=== PATIENT | female | born 1995 | race African-American/Black ===

== ENCOUNTER 2017-03-16 10:44 | Emergency (ER) | payer OTHER ==
[~2017-03-16] VITALS: Ht 165.1 cm; Wt 60.0 kg
[2017-03-16 10:45] VITALS: BP 132/67; PULSE 94; RESP 17; TEMP 98.8; O2SAT 100
[2017-03-16] MEDS ORDERED: PRENTAB PO (10:58)
--- NOTE | 2017-03-16 11:13 | PD ---
HPI Chief Complaint: Related Problem Time Seen by Provider: 11:09 Travel History International Travel<30 days: No Contact w/Intl Traveler<30days: No Traveled to known affect area: No History of Present Illness HPI Patient's a 21-year-old female presenting to the emergency evaluation of vaginal bleeding. Patient reports being a weeks , she states the bleeding started Sunday and initially it was heavier and she believes she passed clots. It's gotten telemetry registered nurse over the course of the last 3 days but she has continued to have some mild abdominal cramping. She reports nausea but this has been consistent since she became . She has not vomited, no fever, no chills, shortness of breath, no chest pain. Patient denies any significant past medical history. She has not been evaluated by an printer operator. She did start vitamins on her own last week. PFSH Past Medical History Medical History: Denies Significant Hx ?: LMP: DECEMBER 24, 2016 : 1 Para: 0 Past Surgical History Surgical History: No Previous Surgery Social History Alcohol Use: No Tobacco Use: No Substance Use: No Allergies-Medications (Allergen,Severity, Reaction): Coded Allergies: No Known Allergies (Unverified , 03/16/17) Reported Meds & Prescriptions Reported Meds & Active Scripts Active Reported Prenatabs Rx 29-1 mg ( Vit W/ Iron Carbonyl-) 1 Tab Tab 1 Tab PO DAILY Review of Systems Except as stated in HPI: all other systems reviewed are Neg Gastrointestinal: Positive: Nausea, Abdominal Pain (CRAMPING) Genitourinary: Positive: Vaginal Bleeding, No: Dysuria Physical Exam Narrative GENERAL: Well-developed, well-nourished, alert female. Resting comfortably in no acute distress. SKIN: Warm and dry. HEAD: Atraumatic. Normocephalic. EYES: Pupils equal and round. No scleral icterus. No injection or drainage. ENT: No nasal bleeding or discharge. Mucous membranes pink and moist. NECK: Trachea midline. No JVD. CARDIOVASCULAR: Regular rate and rhythm. RESPIRATORY: No accessory muscle use. Clear to auscultation. Breath sounds equal bilaterally. GASTROINTESTINAL: Abdomen soft, non-tender, nondistended. Hepatic and splenic margins not palpable. MUSCULOSKELETAL: Extremities without clubbing, cyanosis, or edema. No obvious deformities. GENITOURINARY: Normal external genitalia without lesions or erythema. Vaginal vault with yellow/green watery discharge. Cervical os open with blood streaked mucus. No cervical motion tenderness. Uterus nontender and nonenlarged. Bilateral adnexa nontender without masses. NEUROLOGICAL: Awake and alert. No obvious cranial nerve deficits. Motor grossly within normal limits. Five out of 5 muscle strength in the arms and legs. Normal speech. PSYCHIATRIC: Appropriate mood and affect; insight and judgment normal. Data Data Last Documented VS Vital Signs Date Time Temp Pulse Resp B/P Pulse Ox O2 Delivery O2 Flow Rate FiO2 03/16/17 12:30 97.8 72 17 128/71 100 Room Air Orders Beta Hcg (Quant/Titer) (03/16/17 11:06) Complete Blood Count With Diff (03/16/17 11:06) Comprehensive Metabolic Panel (03/16/17 11:06) Gc And Chlamydia Pcr (03/16/17 11:06) Complete Rh (03/16/17 11:06) Us Pelvis (Ques Pr/Ect)W Trans (03/16/17 ) Wet Prep Profile (03/16/17 11:06) Urinalysis - C+S If Indicated (03/16/17 11:06) Ed Urine Pregnancytest Poc (03/16/17 11:06) Labs Laboratory Tests Test 03/16/17 03/16/17 03/16/17 11:10 11:11 11:14 White Blood Count 7.3 TH/MM3 Red Blood Count 4.23 MIL/MM3 Hemoglobin 13.6 GM/DL Hematocrit 39.1 % Mean Corpuscular Volume 92.5 FL Mean Corpuscular Hemoglobin 32.1 PG Mean Corpuscular Hemoglobin 34.8 % Concent Red Cell Distribution Width 12.0 % Platelet Count 199 TH/MM3 Mean Platelet Volume 9.8 FL Neutrophils (%) (Auto) 70.3 % Lymphocytes (%) (Auto) 21.9 % Monocytes (%) (Auto) 6.7 % Eosinophils (%) (Auto) 0.7 % Basophils (%) (Auto) 0.4 % Neutrophils # (Auto) 5.1 TH/MM3 Lymphocytes # (Auto) 1.6 TH/MM3 Monocytes # (Auto) 0.5 TH/MM3 Eosinophils # (Auto) 0.1 TH/MM3 Basophils # (Auto) 0.0 TH/MM3 CBC Comment DIFF FINAL Differential Comment Sodium Level 135 MEQ/L Potassium Level 3.3 MEQ/L Chloride Level 101 MEQ/L Carbon Dioxide Level 22.3 MEQ/L Anion Gap 12 MEQ/L Blood Urea Nitrogen 9 MG/DL Creatinine 0.57 MG/DL Estimat Glomerular Filtration 165 ML/MIN Rate Random Glucose 73 MG/DL Calcium Level 9.3 MG/DL Total Bilirubin 1.0 MG/DL Aspartate Amino Transf 9 U/L (AST/SGOT) Alanine Aminotransferase 13 U/L (ALT/SGPT) Alkaline Phosphatase 70 U/L Total Protein 7.2 GM/DL Albumin 3.7 GM/DL Human Chorionic Gonadotropin, 40895 MIU/ML Quant Blood Type B POSITIVE Rho(D) Type POSITIVE Urine Color YELLOW Urine Turbidity CLEAR Urine pH 6.0 Urine Specific Raymond 1.034 Urine Protein 30 mg/dL Urine Glucose (UA) NEG mg/dL Urine Ketones 150 mg/dL Urine Occult Blood SMALL Urine Nitrite NEG Urine Bilirubin NEG Urine Urobilinogen 2.0 MG/DL Urine Leukocyte Esterase NEG Urine RBC 2 /hpf Urine WBC 1 /hpf Urine Squamous Epithelial 1 /hpf Cells Urine Bacteria OCC /hpf Urine Mucus MANY /lpf Microscopic Urinalysis Comment CULT NOT INDICATED Clue Cells (Wet Prep) NONE SEEN Vaginal Trichomonas (Wet Prep) NONE SEEN Vaginal Yeast (Wet Prep) NONE SEEN Chlamydia trachomatis DNA NOT DETECTED (PCR) Neisseria gonorrhoeae DNA NOT DETECTED (PCR) MDM Medical Decision Making Medical Screen Exam Complete: Yes Emergency Medical Condition: Yes Interpretation(s) Vital Signs Date Time Temp Pulse Resp B/P Pulse Ox O2 Delivery O2 Flow Rate FiO2 03/16/17 10:45 98.8 94 17 132/67 100 Room Air Differential Diagnosis Vaginal bleeding versus threatened versus miscarriage versus ectopic versus other Narrative Course Patient is a 21-year-old female that presented to emergency for evaluation of vaginal bleeding that has been ongoing since Sunday. Patient reports being 8 weeks states this was confirmed by an ultrasound performed in a women' s clinic last week. She has not had any obstetric care to this point. She does report passing what appeared to be clots on Sunday, the flow has gotten telemetry registered nurse since then. Labs and imaging ordered and pending. CBC is unremarkable hCG is 98,426 Potassium 3.3 Urinalysis unremarkable Wet prep is negative blood type is B+ Ultrasound of shows a single intrauterine measuring 9 weeks. heart tones at 180 Patient was encouraged to follow-up with an printer operator within the next week or at the [facility]. She was encouraged to avoid heavy lifting or strenuous exercise until evaluated by her printer operator. She verbalized understanding of instructions. Patient is stable for discharge. Diagnosis Primary Impression: Qualified Code: Z3A.09 - 9 weeks gestation of Referrals: Operator Weapon Locating [facility] 1 week Patient Instructions: First Trimester (ED), General Instructions, Threatened Miscarriage (ED) Additional Instructions: Follow-up with an printer operator within the next week You can follow-up at [facility] Continue vitamins Return to emergency department for any new or worsening symptoms avoid heavy lifting or strenuous exercise until evaluated by printer operator. Med/Other Pt SpecificInfo: No Change to Meds Disposition: 01 DISCHARGE HOME Condition: Stable Yaritza Lin Mar 16, 2017 11:13
[2017-03-16 11:35] LABS: BACTERIA, URINE OCC /hpf; BLOOD, URINE SMALL (NEG); COMMENT (UR) CULT NOT INDICATED; CULTURE IF INDICATED CULT NOT INDICATED; GLUCOSE,URINE NEG (NEG); KETONE, URINE 150 mg/dL (NEG); MUCUS URINE MANY /lpf (OCC); NITRITE,URINE NEG (NEG); SQUAMOUS EPITHELIAL CELL URINE 1 /hpf (0-5); URINE COLOR YELLOW (YELLW/STRAW)
[2017-03-16 11:37] LABS: AUTOMATED NEUTROPHIL # 5.1 TH/MM3 (1.8-7.7); BASOPHIL % 0.4 % (0.0-2.0); EOSINOPHIL # 0.1 TH/MM3 (0-0.4); EOSINOPHIL % 0.7 % (0.0-4.0); HEMATOCRIT 39.1 % (35.0-46.0); HEMO FLAGS DIFF FINAL; LYMPH % 21.9 % (9.0-44.0); LYMPHOCYTE # 1.6 TH/MM3 (1.0-4.8); MEAN CELL VOLUME 92.5 FL (80.0-100.0); MEAN CORPUSCULAR HEMOGLOBIN 32.1 PG (27.0-34.0); MEAN CORPUSCULAR HGB CONC 34.8 % (32.0-36.0); MONO % 6.7 % (0.0-8.0); NEUT % 70.3 % (16.0-70.0); PLATELET COUNT 199 TH/MM3 (150-450); RED BLOOD COUNT 4.23 MIL/MM3 (4.00-5.30); WHITE BLOOD COUNT 7.3 TH/MM3 (4.0-11.0)
[2017-03-16 11:50] LABS: ANION GAP 12 MEQ/L (5-15); AST (GOT) 9 U/L (16-38); BICARBONATE 22.3 MEQ/L (21.0-32.0); BLOOD UREA NITROGEN 9 MG/DL (7-18); CHLORIDE 101 MEQ/L (98-107); GLOMERULAR FILTRATION RATE 165 ML/MIN (>89); POTASSIUM 3.3 MEQ/L (3.5-5.1); SODIUM (NA) 135 MEQ/L (136-145)
[2017-03-16 11:51] LABS: ALT (GPT) 13 U/L (9-42)
[2017-03-16 12:08] LABS: ALKALINE PHOSPHATASE 70 U/L (45-117); BETA HCG QUANT 98426 MIU/ML (0-5)
[2017-03-16 12:30] VITALS: BP 128/71; PULSE 72; RESP 17; TEMP 97.8; O2SAT 100
[2017-03-16 13:35] LABS: CHLAMYDIA PCR NOT DETECTED (NOT DETECT); NEISSERIA PCR NOT DETECTED (NOT DETECT)
--- NOTE | 2017-03-16 13:44 | RADRPT ---
EXAM DATE/TIME: 03/16/2017 12:21 [place] COMPARISON: No previous studies available for comparison. INDICATIONS : Bleeding and cramping since yesterday. LAB(S): Beta-hC MEDICAL HISTORY : . SURGICAL HISTORY : None. ENCOUNTER: Initial ACUITY: 2 days PAIN SCORE: 0/10 LOCATION: Bilateral pelvis MEASUREMENTS: TRANSVAGINAL: UTERUS: 9.2 x 6.7 x 4.9 cm ENDOMETRIAL STRIPE: 9 mm RIGHT OVARY: 4.4 x 2.5 x 2.9 cm LEFT OVARY: 3.5 x 2.5 x 1.9 cm FREE FLUID: Yes CROWN RUMP LENGTH: 2.3 cm = 9 WKS 0 DAYS FHR: 180 BPM FINDINGS: UTERUS: There is a gestational sac containing crown rump length measuring 2.3 cm corresponding to gestat ional age of 9 weeks and 0 days. heart activity is present with heart rate of 180 bp m. No gross myometrial mass. Small amount of fluid is noted in the cervix. RIGHT OVARY: Ovary contains no mass or significant cystic lesion. LEFT OVARY: Ovary contains no mass or significant cystic lesion. MISCELLANEOUS: Small of free fluid. CONCLUSION: 1. Single intrauterine gestation corresponding to 9 weeks and 0 days with heart activity presen t. heart rate of 180 bpm. 2. Small amount of lower cervical and vaginal fluid. The 3. Small amount of pelvic free fluid. 1. Cliff Lyn MD on March 16, 2017 at 13:34 Board Certified Radiologist. This report was verified electronically.
[2017-03-16 14:00] VITALS: BP 110/77; TEMP 97.8
== END 2017-03-16 14:00 | disposition home or self-care (01) ==
LOC: NEPD 10:44
DX: O20.9 Hemorrhage in early pregnancy, unspecified (principal); R10.9 Unspecified abdominal pain; R11.0 Nausea; Z3A.09 9 weeks gestation of pregnancy
CPT/HCPCS: 76700; 76817; 80053; 81001; 84702; 84703; 85025; 86901; 87210; 87491; 87591; 99284

== ENCOUNTER 2017-05-30 11:46 | Emergency (ER) | payer MEDICAID, OTHER ==
[~2017-05-30] VITALS: Ht 165.1 cm; Wt 60.0 kg
[~2017-05-30 11:46] MED LIST: PRENTAB PO
[2017-05-30 11:48] VITALS: BP 134/78; PULSE 112; RESP 20; TEMP 99.1; O2SAT 100
[2017-05-30] MEDS ORDERED: SODIUM CHLORIDE 0.9% FLUSH 10 ML FLUSH IVF PRN (12:15)
[2017-05-30] MEDS ORDERED: SODIUM CHLOR 0.9% 1000 ML INJ 1,000 ML IV ONE (12:15)
--- NOTE | 2017-05-30 12:27 | PD ---
HPI . Dizzy spells Chief Complaint: Dizziness Time Seen by Provider: 12:12 Travel History International Travel<30 days: No Contact w/Intl Traveler<30days: No Traveled to known affect area: No History of Present Illness HPI This patient presents stating that she is 19 weeks and that she had a couple of dizzy spells yesterday. She was concerned and presented to the emergency department today for evaluation. She is not having a dizzy spell currently. She has not yet established herself with an OB for care. Her dizzy spells were both brief. She states that she is drinking adequate fluids. She has not had any vomiting or diarrhea. No modifying factor. Symptoms were brief and mild. PFSH Past Medical History Diminished Hearing: No ?: LMP: 12/31/16 : 1 Para: 0 Social History Alcohol Use: No Tobacco Use: No Substance Use: No Allergies-Medications (Allergen,Severity, Reaction): Coded Allergies: No Known Allergies (Unverified , 05/30/17) Reported Meds & Prescriptions Reported Meds & Active Scripts Active Reported Prenatabs Rx 29-1 mg ( Vit W/ Iron Carbonyl-) 1 Tab Tab 1 Tab PO DAILY Review of Systems Except as stated in HPI: all other systems reviewed are Neg General / Constitutional: No: Fever, Chills Eyes: No: Blurred Vision HENT: Positive: Lightheadedness, No: Vertigo Cardiovascular: No: Chest Pain or Discomfort Respiratory: No: Shortness of Breath Gastrointestinal: No: Nausea, Vomiting, Diarrhea, Abdominal Pain Genitourinary: No: Urgency, Frequency, Dysuria, Decreased Urinary Output Physical Exam Narrative GENERAL: Patient is well-appearing. She is sitting on the edge of the bed using her cell phone conversing with her male visitor. SKIN: warm/dry. HEAD: Normocephalic. Atraumatic. EYES: Pupils equal and round. No scleral icterus. No injection or drainage. ENT: No nasal bleeding or discharge. Mucous membranes pink and moist. NECK: Trachea midline. Full range of motion without pain.. CARDIOVASCULAR: Regular rate and rhythm. Heart sounds are normal. RESPIRATORY: No accessory muscle use. Clear to auscultation. Breath sounds equal bilaterally. GASTROINTESTINAL: Abdomen soft. Nontender. Bowel sounds present. Nondistended. Uterus is gravid to above the umbilicus. MUSCULOSKELETAL: No obvious deformities. NEUROLOGICAL: Awake and alert. No obvious cranial nerve deficits. Motor grossly within normal limits. Normal speech. PSYCHIATRIC: Appropriate mood and affect; insight and judgment normal. Data Data Last Documented VS Vital Signs Date Time Temp Pulse Resp B/P (MAP) Pulse Ox O2 Delivery O2 Flow Rate FiO2 05/30/17 12:38 84 15 119/57 (77) 05/30/17 11:48 99.1 100 Room Air Orders Orders Basic Metabolic Panel (Bmp) (05/30/17 12:13) Complete Blood Count With Diff (05/30/17 12:13) Iv Access Insert/Monitor (05/30/17 12:13) Sodium Chloride 0.9% Flush (Ns Flush) (05/30/17 12:15) Orthostatic Vital Signs (05/30/17 12:13) Heart Tones (05/30/17 12:13) Sodium Chlor 0.9% 1000 Ml Inj (Ns 1000 M (05/30/17 12:15) Labs Laboratory Tests Test 05/30/17 12:45 White Blood Count 10.3 TH/MM3 Red Blood Count 3.74 MIL/MM3 Hemoglobin 11.9 GM/DL Hematocrit 35.5 % Mean Corpuscular Volume 95.0 FL Mean Corpuscular Hemoglobin 31.9 PG Mean Corpuscular Hemoglobin Concent 33.6 % Red Cell Distribution Width 13.3 % Platelet Count 195 TH/MM3 Mean Platelet Volume 9.3 FL Neutrophils (%) (Auto) 78.1 % Lymphocytes (%) (Auto) 14.5 % Monocytes (%) (Auto) 6.3 % Eosinophils (%) (Auto) 0.7 % Basophils (%) (Auto) 0.4 % Neutrophils # (Auto) 8.1 TH/MM3 Lymphocytes # (Auto) 1.5 TH/MM3 Monocytes # (Auto) 0.7 TH/MM3 Eosinophils # (Auto) 0.1 TH/MM3 Basophils # (Auto) 0.0 TH/MM3 CBC Comment DIFF FINAL Differential Comment Blood Urea Nitrogen 3 MG/DL Creatinine 0.53 MG/DL Random Glucose 68 MG/DL Calcium Level 8.5 MG/DL Sodium Level 136 MEQ/L Potassium Level 3.3 MEQ/L Chloride Level 106 MEQ/L Carbon Dioxide Level 23.7 MEQ/L Anion Gap 6 MEQ/L Estimat Glomerular Filtration Rate 178 ML/MIN MDM Medical Decision Making Medical Screen Exam Complete: Yes Emergency Medical Condition: Yes Differential Diagnosis Differential diagnosis of dizziness includes but is not limited to vertigo, dehydration, acute blood loss, sepsis, ACS Narrative Course This is a patient who presents complaining with dizzy spells. I will check her electrolytes, glucose, blood count. We will listen for heart tones. I will give her a liter bolus of fluid. CBC & BMP Diagram 05/30/17 12:45 Calcium Level 8.5 Her potassium will be replaced. Diagnosis Primary Impression: Dizziness Additional Impressions: Hypokalemia Qualified Codes: Z3A.19 - 19 weeks gestation of Patient Instructions: Dizziness (ED), General Instructions Additional Instructions: Obtained an straw hat machine operator as soon as possible. In the meantime, be sure to take a daily multivitamin. Avoid tobacco and alcohol. No illicit drugs. Disposition: 01 DISCHARGE HOME Condition: Stable Taisha Grimes MD May 30, 2017 12:27
[2017-05-30 12:37] VITALS: BP 119/56; RESP 18
[2017-05-30 12:38] VITALS: BP 119/57; RESP 15
[2017-05-30 13:36] LABS: AUTOMATED NEUTROPHIL # 8.1 TH/MM3 (1.8-7.7); BASOPHIL % 0.4 % (0.0-2.0); EOSINOPHIL # 0.1 TH/MM3 (0-0.4); EOSINOPHIL % 0.7 % (0.0-4.0); HEMATOCRIT 35.5 % (35.0-46.0); HEMO FLAGS DIFF FINAL; LYMPH % 14.5 % (9.0-44.0); LYMPHOCYTE # 1.5 TH/MM3 (1.0-4.8); MEAN CORPUSCULAR HEMOGLOBIN 31.9 PG (27.0-34.0); MEAN CORPUSCULAR HGB CONC 33.6 % (32.0-36.0); MONO % 6.3 % (0.0-8.0); NEUT % 78.1 % (16.0-70.0); PLATELET COUNT 195 TH/MM3 (150-450); RED BLOOD COUNT 3.74 MIL/MM3 (4.00-5.30); RED CELL DISTRIBUTION WIDTH 13.3 % (11.6-17.2); WHITE BLOOD COUNT 10.3 TH/MM3 (4.0-11.0)
[2017-05-30 14:02] LABS: BICARBONATE 23.7 MEQ/L (21.0-32.0); POTASSIUM 3.3 MEQ/L (3.5-5.1)
[2017-05-30] MEDS ORDERED: POTASSIUM CHLORIDE 20 MEQ CONTROLLED RELEASE TAB PO ONE (14:45)
[2017-05-30 16:46] VITALS: BP 124/54; PULSE 81; RESP 18; O2SAT 99
== END 2017-05-30 17:08 | disposition home or self-care (01) ==
LOC: NEPC 14:18
DX: O26.892 Other specified pregnancy related conditions, second trimester (principal); R42 Dizziness and giddiness; E87.6 Hypokalemia; Z3A.19 19 weeks gestation of pregnancy
CPT/HCPCS: 80048; 85025; 96360; 99284; J7030

== ENCOUNTER 2017-10-24 22:57 | Inpatient (IN) | payer OTHER, MEDICAID ==
[~2017-10-24] VITALS: Ht 165.1 cm; Wt 73.0 kg
[~2017-10-24 22:57] MED LIST changes: +PREN1CAP20 PO
[2017-10-24] MEDS ORDERED: LACTATED RINGER'S 1000 ML INJ 1,000 ML IV PRN (23:47)
--- NOTE | 2017-10-24 23:47 | PD ---
HPI Chief Complaint Contractions Date Seen: Oct 24, 2017 Time Seen: 23:41 Travel History International Travel<30 Days: No Contact w/Intl Traveler<30Days: No Known Affected Area: No History of Present Illness HPI 22-year-old who is at 40 weeks 5 days comes in complaining of contractions since 9 PM this evening. Patient was checked earlier this week but was not told what her cervical exam was. She had a group B strep but she does not know the results of the GBS either. Denies any complications Weeks Gestation: 40 Para: 0 : 1 History Past Medical History Medical History: Denies Significant Hx Past Surgical History Surgical History: No Previous Surgery Family History Family History: Negative Social History Alcohol Use: No Tobacco Use: No Substance Abuse: No Allergies-Medications (Allergen,Severity, Reaction): Coded Allergies: No Known Allergies (Unverified Adverse Reaction, Unknown, 09/12/17) Home Meds Active Scripts W/O Vit A W/ Fe Carbo (Prenate Mini 18-0.6-0.4-350 mg) 18 Mg Iron-1 Mg- 350 Mg Cap, 1 TAB PO DAILY, #30 BOTTLE 11 Refills Prov:Jennifer Osorio 07/09/17 Mv & Min W/O Vit A W/ (Nestabs Abc 32-1-200 mg) 32 Mg Iron-1 Mg-120 Mg- 180 Mg Mis Prov:Jennifer Osorio 07/09/17 Reported Medications Vit W/ Iron Carbonyl- (Prenatabs Rx 29-1 mg) 1 Tab Tab, 1 TAB PO DAILY 03/16/17 Review of Systems Except as stated in HPI: all other systems reviewed are Neg Physical Exam Narrative GENERAL: Well-nourished, well-developed patient. SKIN: Warm and dry. HEAD: Normocephalic and atraumatic. EYES: No scleral icterus. No injection or drainage. ENT: No nasal drainage noted. Mucous membranes pink. Airway patent. NECK: Supple, trachea midline. No JVD. CARDIOVASCULAR: Regular rate and rhythm without murmurs, gallops, or rubs. RESPIRATORY: Breath sounds equal bilaterally. No accessory muscle use. ABDOMEN/GI: Abdomen soft, non-tender, bowel sounds present, no rebound, no guarding Gravid to [-38] weeks size Fundal Height: [-] GENITOURINARY: External Genitalia: intact and normal in appearance BUS glands: [Normal-] Cervix: [-Posterior] Dilatation: [3-] Effacement: [-50] Station: [--2] Presentation: [Vertex-] Membranes: [intact or ruptured] intact Uterine Contractions: [-] Irregular FHT's: Category: [-] 1 Baseline: [-] 140 Reactive: [-] Moderate Variability: [-] Moderate Decels: [-] Absent EXTREMITIES: No cyanosis or edema. BACK: Nontender without obvious deformity. No CVA tenderness. NEUROLOGICAL: Awake and alert. Motor and sensory grossly within normal limits. Five out of 5 muscle strength in all muscle groups. Normal speech. Data Data Vital Signs Reviewed: Yes [facility] Medical Record Reviewed: Yes Plan 22-year-old who is at 40 weeks and 5 days We will keep the patient here at the hospital and initiate induction of labor Rapid group B strep was sent Diagnosis Diagnosis: Primary Impression: 40 weeks gestation of Additional Impression: Irregular uterine contractions Cate Nathan MD Oct 24, 2017 23:47
[2017-10-25] VITALS (135 sets, daily range): BP systolic 66–152; BP diastolic 36–92; PULSE 61–128; RESP 16–22; TEMP 97.9–98.9; O2SAT 100
[2017-10-25] MEDS ORDERED: SODIUM CHLORID 0.9% 500 ML INJ 500 ML IV PRN
[2017-10-25] MEDS ORDERED: OXYTOCIN 30 UNITS-500ML PREMIX 500 ML IV PRN
[2017-10-25] MEDS ORDERED: LIDOCAINE HCL 1% 50 ML VIAL INFIL PRN
[2017-10-25] MEDS ORDERED: CITRIC ACID-SODIUM CITRATE LIQ 30 ML UDC PO SCH
[2017-10-25] MEDS ORDERED: LIDOCAINE HCL 1% 50 ML VIAL I-DERMAL PRN
[2017-10-25] MEDS ORDERED: MINERAL OIL 10 ML VIAL TOPICAL PRN
[2017-10-25] MEDS ORDERED: SODIUM CHLOR 0.9% 1000 ML INJ 1,000 ML IV PRN (00:07)
[2017-10-25 01:01] LABS: AUTOMATED NEUTROPHIL # 5.7 TH/MM3 (1.8-7.7); BASOPHIL % 0.3 % (0.0-2.0); EOSINOPHIL # 0.1 TH/MM3 (0-0.4); EOSINOPHIL % 1.2 % (0.0-4.0); HEMATOCRIT 34.2 % (35.0-46.0); HEMOGLOBIN 11.4 GM/DL (11.6-15.3); LYMPH % 26.2 % (9.0-44.0); LYMPHOCYTE # 2.4 TH/MM3 (1.0-4.8); MEAN CELL VOLUME 91.7 FL (80.0-100.0); MEAN CORPUSCULAR HEMOGLOBIN 30.6 PG (27.0-34.0); MEAN CORPUSCULAR HGB CONC 33.3 % (32.0-36.0); MEAN PLATELET VOLUME 10.1 FL (7.0-11.0); MONO % 11.7 % (0.0-8.0); MONOCYTE # 1.1 TH/MM3 (0-0.9); NEUT % 60.6 % (16.0-70.0); PLATELET COUNT 222 TH/MM3 (150-450); RED BLOOD COUNT 3.73 MIL/MM3 (4.00-5.30); RED CELL DISTRIBUTION WIDTH 13.4 % (11.6-17.2); WHITE BLOOD COUNT 9.3 TH/MM3 (4.0-11.0)
[2017-10-25] MEDS: LACTATED RINGER'S 1000 ML INJ 1,000 ML IV SCH ×3 (01:02→10:53)
[2017-10-25] MEDS ORDERED: PENICILLIN G POT 5,000,000 UNITS/NS 100 ML(Mini-Bag Plus) IV ONE ×2 (05:00)
[2017-10-25] MEDS ORDERED: CEFAZOLIN INJ 2,000 MG in SODIUM CHLORIDE 0.9% INJ 100 ML IV SCH (05:00)
[2017-10-25] MEDS ORDERED: INFLUENZA VIRUS VACCINE (QUADRIVALENT) 0.5 ML SYR IM ONE (09:00)
[2017-10-25] MEDS ORDERED: fentaNYL 2MCG-BUPIV 0.125% INJ 100 ML ONE (09:22)
[2017-10-25] MEDS ORDERED: ePHEDrine/NS 25 MG/5 ML SYRINGE ONE (09:22)
[2017-10-25] MEDS: PENICILLIN G POT 2,500,000 UNITS/NS 100 ML IV SCH ×6 (09:32→17:36)
[2017-10-25] MEDS ORDERED: NO SYSTEM NARCOTICS PRN (11:30)
[2017-10-25] MEDS ORDERED: ePHEDrine/NS 25 MG/5 ML SYRINGE IV PUSH PRN (11:30)
[2017-10-25] MEDS ORDERED: DO NOT ADMINISTER ANTICOAGULANTS PRN (11:30)
[2017-10-25] MEDS ORDERED: fentaNYL 2MCG-BUPIV 0.125% 100 ML EPIDURAL SCH (11:30)
--- NOTE | 2017-10-25 11:44 | PD.LABORPN ---
Subjective Subjective Patient laying in bed, resting comfortably. No complaints at this time. Objective Vital Signs Vital Signs Date Time Temp Pulse Resp B/P (MAP) Pulse Ox O2 Delivery O2 Flow Rate FiO2 10/25/17 11:26 98.3 10/25/17 11:25 87 10/25/17 11:20 102 10/25/17 11:15 83 10/25/17 11:11 98 136/54 (81) 10/25/17 11:10 103 10/25/17 11:06 81 120/75 (90) 10/25/17 11:05 84 10/25/17 11:01 93 113/62 (79) 10/25/17 11:00 78 10/25/17 10:59 17 10/25/17 10:55 78 10/25/17 10:55 107 116/53 (74) 10/25/17 10:50 87 118/44 (68) 10/25/17 10:50 87 10/25/17 10:46 128 119/36 (63) 10/25/17 10:41 80 109/73 (85) 10/25/17 10:40 81 10/25/17 10:37 104/72 (83) 10/25/17 10:36 81 66/48 (54) 10/25/17 10:35 77 10/25/17 10:31 69 132/57 (82) 10/25/17 10:30 75 10/25/17 10:30 18 10/25/17 10:26 76 121/58 (79) 10/25/17 10:25 98 10/25/17 10:21 76 130/64 (86) 10/25/17 10:20 85 10/25/17 10:16 66 133/62 (85) 10/25/17 10:15 72 10/25/17 10:11 76 132/72 (92) 10/25/17 10:10 94 10/25/17 10:06 91 112/84 (93) 10/25/17 10:05 84 10/25/17 09:56 70 120/47 (71) 10/25/17 09:55 86 10/25/17 09:50 89 10/25/17 09:50 73 119/67 (84) 10/25/17 09:45 72 132/77 (95) 10/25/17 09:45 91 10/25/17 09:41 88 119/59 (79) 10/25/17 09:40 83 10/25/17 09:36 73 113/57 (75) 10/25/17 09:35 77 10/25/17 09:33 19 10/25/17 09:31 72 120/57 (78) 10/25/17 09:30 86 17 10/25/17 09:29 78 120/72 (88) 10/25/17 09:00 92 123/65 (84) 10/25/17 08:15 18 10/25/17 08:00 100 127/78 (94) 10/25/17 07:31 76 116/48 (70) 10/25/17 07:11 17 10/25/17 07:01 66 123/52 (75) 10/25/17 06:30 83 131/68 (89) 10/25/17 06:01 84 124/68 (86) 10/25/17 05:47 18 10/25/17 05:46 98 123/76 (92) 10/25/17 05:45 97.9 10/25/17 05:15 16 10/25/17 05:02 74 106/47 (66) 10/25/17 04:52 16 10/25/17 04:30 84 121/78 (92) 10/25/17 04:09 18 10/25/17 04:08 78 127/78 (94) Objective Pelvic Exam: Dilatation: 4 Effacement: 90 Station: 1 Presentation: Vertex Membranes: AROM Uterine Contractions: Consistent, regular FHT's: Category: 2 Baseline: 140 Reactive: Yes Variability: Moderate Decels: Rare Weeks Gestation: 40 Assessment/Plan Assessment and Plan 22-year-old at 40/6 currently in active labor. GBS positive -Has received 2 doses of penicillin IV -AROM performed -IUPC placed -FHT category 2, rare decels, reassuring -Continue to monitor FHT -Expectant management Amarjit Izaguirre MD R1 Oct 25, 2017 11:44
[2017-10-25] MEDS ORDERED: LACTATED RINGER'S 1000 ML INJ 1,000 ML IV ONE (12:00)
[2017-10-25] MEDS ORDERED: OXYTOCIN 10 UNIT/ML AMP IV ONE (12:00)
[2017-10-25] MEDS ORDERED: ONDANSETRON HCL 4 MG/2 ML VIAL IV ONE (12:00)
[2017-10-25] MEDS ORDERED: ESMOLOL HCL 100 MG/10 ML VIAL IV ONE (12:00)
[2017-10-25] MEDS ORDERED: PHENYLEPH/NS 1000 MCG/10 ML SYR IV ONE (12:00)
[2017-10-25] MEDS ORDERED: LIDOCAINE 2%/EPINEPHrine PF 1:200,000 20ML SDV OTHER ONE (12:00)
[2017-10-25] MEDS ORDERED: ceFAZolin INJ 1,000 MG VIAL IV ONE (12:00)
[2017-10-25] MEDS ORDERED: SODIUM CHLORIDE 0.9% 20 ML VIAL IV ONE (12:00)
[2017-10-25] MEDS ORDERED: ACETAMINOPHEN 1000 MG/100 ML 100 ML IV ONE (20:26)
[2017-10-25] MEDS ORDERED: MORPHINE SULFATE PF 5 MG/10 ML VIAL ONE (20:26)
[2017-10-25] MEDS ORDERED: METOCLOPRAMIDE HCL 10 MG/2 ML VIAL ONE (21:31)
[2017-10-25] MEDS ORDERED: oxyCODONE/ACETAMINOPHEN 5 MG/325 MG TAB PO PRN ×2 (22:00)
[2017-10-25] MEDS ORDERED: SODIUM CHLORIDE 0.9% FLUSH 10 ML FLUSH IV FLUSH PRN (22:00)
[2017-10-25] MEDS ORDERED: ACETAMINOPHEN 325 MG TAB PO PRN (22:00)
[2017-10-25] MEDS ORDERED: KETOROLAC TROMETHAMINE 60 MG/2 ML (IM) VIAL IM PRN (22:00)
[2017-10-25] MEDS ORDERED: DOCUSATE SODIUM 50 MG/SENNA 8.6 MG TAB PO PRN (22:00)
[2017-10-25] MEDS ORDERED: ONDANSETRON HCL 4 MG/2 ML VIAL IV PUSH PRN ×2 (22:00)
[2017-10-25] MEDS ORDERED: SIMETHICONE 80 MG CHEWABLE TAB PO PRN (22:00)
[2017-10-25] MEDS ORDERED: OXYTOCIN 30 UNITS-500ML PREMIX 500 ML IV ONE ×2 (22:00)
--- NOTE | 2017-10-25 22:06 | PD.OP ---
[facility] [address] [place] [address] [address] [place] [address] OPERATIVE REPORT Pt Name: Celine Bowman EMR#: [id number] Loc: [place] labor and delivery attended By: Lucas Barron II, [facility] #: [id number] Pt : 97 DATE OF SURGERY 10/25/2017 PREOPERATIVE DIAGNOSIS Failure to progress/failed induction 40--41 weeks POSTOPERATIVE DIAGNOSIS Same PROCEDURE PERFORMED Primary low transverse section SURGEON Lucas Barron MD [employer] TRIMMER SURGEON None ANESTHESIA Epidural PREOPERATIVE NOTE Patient is a 22-year-old black female at 40-41 weeks who presented in labor was augmented appropriately Pitocin given achieved a cervical dilation of 5 cm made no further progress in greater than 5 hours of contractions on near maximum dose of Pitocin PROCEDURE Patient taken to the operating room and placed on the operating table after adequate epidural anesthesia administered she was prepped and draped for abdominal surgery. A Pfannenstiel incision was made and carried to the fascia. Fascia dissected off the rectus muscle and rectus split in the midline peritoneal cavity entered sharply. The incision extended superior and inferiorly. Bladder blade placed lower uterine incision and the visceral peritoneum was reflected off the lower uterine segment placed on the bladder blade. A transverse hysterotomy was made and extended bluntly bilaterally and a male was delivered at 2058 weight 3430 g Apgars 8/9. There was no complications delivery delayed cord clamping done cord blood obtained placenta manually extracted. Baby handed to waiting nursery staff. The hysterotomy closed in a running layer of 0 chromic followed by an imbricating suture of the same, hemostasis achieved with multiple [id number] stick ties along the incision line. The bladder then reapproximated with 2-0 running Vicryl suture tacking the bladder back up in its original position. Uterus is elevated, tubes and ovaries examined noted to be normal blood suctioned the cul-de-sac gutters and the uterus replaced in the peritoneal cavity, the parietal peritoneum closed in a running layer of 2-0 Vicryl rectus muscle reapproximated with stick ties of chromic and Vicryl. Fascia closed in a running layer of 0 Vicryl. The skin closed with 3-0 Monocryl subcuticular stitch and pressure dressing with Steri-Strips applied. Estimated blood loss 500 cc were no complications sponge and needle correct 2 patient to recovery in stable condition MD JOSSE ValienteD/DOROTHEA D: [date] OPERATIVE REPORT Electronically Signed: Lucas Barron II, MD Patient:Celine Bowman Report #electronically Signed: Lucas Barron II, MD Signed Signed reports reside in the EMR cc: LUCAS BARRON MD Operative Report Date of Surgery: Oct 25, 2017 Preoperative Diagnosis: Postoperative Diagnosis: Procedure: Primary low transverse section Anesthesia: Epidural Surgeon: Lucas Barron Commercial Intelligence Manager(s): electronic technologist on shift Resident Surgeon: florin Operation and Findings: e patient was taken operating room placed in supine position on the operating table and after adequate epidural anesthesia was prepped and draped for surgery. Pfannenstiel incision made in the lower abdomen. Fascia sharply the fascia incised laterally off the rectus muscle. The peritoneal cavity entered sharply and the incision extended superiorly and inferiorly. The bladder blade placed in the lower edge of the incision and the visceral peritoneum reflected off the lower uterine segment placed behind the bladder blade. A transverse hysterotomy denies gently bluntly bilaterally clear fluid noted a male infant was delivered at 2058 weight 3430 g Apgars 8/ 9. Delayed cord clamping done cord blood obtained placenta manually extracted. The hysterotomy closed in a running layer of 0 chromic followed by imbricating suture of same hemostasis achieved with several stick ties of a [id number] suture on the incision line. The bladder was then reapproximated with 2-0 running Vicryl. The uterus elevated blood suction cul-de-sac gutters and the uterus replaced. In the peritoneal cavity. The parietal peritoneum was closed running layer of 2-0 Vicryl rectus muscle reapproximated with stick ties of chromic and Vicryl the fascia closed running layer of 0 Vicryl. Skin closed with 3-0 Monocryl subcuticular stitch a pressure dressing applied. This may blood loss 500 cc of no complication sponge and needle correct 2. Patient taken to recovery in stable condition Lucas Barron II, MD Oct 25, 2017 22:06
[2017-10-25] MEDS ORDERED: OXYTOCIN 30 UNITS-500ML PREMIX 500 ML ONE (22:44)
[2017-10-25] MEDS ORDERED: EPIDURAL-NALOXONE HCL 0.4 MG/ML AMP IV PUSH PRN (23:45)
[2017-10-25] MEDS ORDERED: EPIDURAL-DIPHENHYDRAMINE HCL 50 MG/ML VIAL IV PUSH PRN (23:45)
[2017-10-25] MEDS ORDERED: EPIDURAL-DIPHENHYDRAMINE HCL 50 MG CAP PO PRN (23:45)
[2017-10-25] MEDS ORDERED: EPIDURAL-NO SYSTEMIC NARCOTICS PRN (23:45)
[2017-10-25] MEDS ORDERED: EPIDURAL-DO NOT ADMINISTER ANTICOAGULANTS PRN (23:45)
[2017-10-26 00:25] VITALS: BP 146/61; PULSE 118; RESP 20; TEMP 97.3; O2SAT 97
[2017-10-26] MEDS ORDERED: LACTATED RINGER'S 1000 ML INJ 1,000 ML IV SCH (02:55)
[2017-10-26 04:00] VITALS: BP 146/58; PULSE 103; RESP 18; TEMP 98.6; O2SAT 95
[2017-10-26] MEDS: ceFAZolin 2 GM PREMIX 50 ML IV SCH ×2 (04:32→13:00)
[2017-10-26 05:58] LABS: AUTOMATED NEUTROPHIL # 12.8 TH/MM3 (1.8-7.7); BASOPHIL % 0.1 % (0.0-2.0); HEMATOCRIT 25.6 % (35.0-46.0); HEMOGLOBIN 8.5 GM/DL (11.6-15.3); LYMPH % 8.9 % (9.0-44.0); LYMPHOCYTE # 1.3 TH/MM3 (1.0-4.8); MEAN CELL VOLUME 91.3 FL (80.0-100.0); MEAN CORPUSCULAR HEMOGLOBIN 30.4 PG (27.0-34.0); MEAN CORPUSCULAR HGB CONC 33.3 % (32.0-36.0); MEAN PLATELET VOLUME 9.5 FL (7.0-11.0); MONO % 6.5 % (0.0-8.0); NEUT % 84.5 % (16.0-70.0); PLATELET COUNT 160 TH/MM3 (150-450); RED BLOOD COUNT 2.81 MIL/MM3 (4.00-5.30); RED CELL DISTRIBUTION WIDTH 14.2 % (11.6-17.2); WHITE BLOOD COUNT 15.1 TH/MM3 (4.0-11.0)
[2017-10-26 08:00] VITALS: BP 143/65; PULSE 111; RESP 18; TEMP 99.4; O2SAT 96
[2017-10-26] MEDS ORDERED: OXYTOCIN 30 UNITS-500ML PREMIX 500 ML IV PRN (08:00)
--- NOTE | 2017-10-26 08:14 | HHI.OB ---
Subjective Post Operative Day: 1 Remarks Postoperative day #1 AFVSS overnight. Incision not draining. Decreased lochia. Denies dysuria. No breast tenderness. She is feeding the baby via breast and bottle. Appetite good. No nausea or vomiting. Positive flatus. Ambulating well. Denies calf pain or shortness of breath. Otherwise, she is doing well this morning and has no other complaints. Objective Vitals/I&O Vital Signs Date Time Temp Pulse Resp B/P (MAP) Pulse Ox O2 Delivery O2 Flow Rate FiO2 10/26/17 04:00 98.6 103 18 146/58 (87) 95 10/26/17 00:25 118 20 146/61 (89) 10/26/17 00:25 97.3 97 10/25/17 23:05 106/66 (79) 10/25/17 23:05 98.8 97 18 100 10/25/17 22:41 111 22 112/58 (76) 100 10/25/17 22:28 100 10/25/17 22:28 90 18 111/56 (74) 10/25/17 22:13 17 100 10/25/17 22:13 99 124/58 (80) 10/25/17 22:00 119/52 (74) 10/25/17 22:00 98.9 117 19 100 10/25/17 20:25 120 100 10/25/17 20:20 95 100 10/25/17 20:16 92 144/80 (101) 10/25/17 20:00 86 138/65 (89) 10/25/17 19:50 98.4 18 10/25/17 19:48 94 132/72 (92) 10/25/17 19:46 95 144/58 (86) 10/25/17 19:15 84 145/73 (97) 10/25/17 19:00 93 131/71 (91) 10/25/17 18:46 103 116/74 (88) 10/25/17 18:45 18 10/25/17 18:31 101 119/61 (80) 10/25/17 18:16 87 149/72 (97) 10/25/17 18:15 17 10/25/17 18:01 89 138/65 (89) 10/25/17 17:46 90 147/61 (89) 10/25/17 17:31 87 151/50 (83) 10/25/17 17:30 98.4 10/25/17 17:16 78 144/63 (90) 10/25/17 17:14 17 10/25/17 17:00 109 152/73 (99) 10/25/17 16:46 84 121/78 (92) 10/25/17 16:31 103 120/72 (88) 10/25/17 16:16 113 123/92 (102) 10/25/17 16:12 18 10/25/17 16:00 99 149/65 (93) 10/25/17 15:45 112 135/73 (93) 10/25/17 15:30 98.3 10/25/17 15:29 17 10/25/17 15:16 84 129/57 (81) 10/25/17 15:00 88 112/47 (68) 10/25/17 15:00 18 10/25/17 14:45 17 10/25/17 14:10 18 10/25/17 14:00 99 114/69 (84) 10/25/17 13:48 98.3 10/25/17 13:46 109 119/77 (91) 10/25/17 13:45 17 10/25/17 13:30 102 132/73 (92) 10/25/17 13:15 100 125/57 (79) 10/25/17 13:07 18 10/25/17 13:05 82 10/25/17 13:00 90 10/25/17 13:00 87 112/55 (74) 10/25/17 12:55 81 10/25/17 12:50 87 10/25/17 12:45 17 10/25/17 12:45 81 10/25/17 12:45 79 110/62 (78) 10/25/17 12:40 83 10/25/17 12:35 77 10/25/17 12:31 84 96/54 (68) 10/25/17 12:30 86 10/25/17 12:25 83 10/25/17 12:20 82 10/25/17 12:16 87 120/38 (65) 10/25/17 12:15 83 10/25/17 12:10 101 10/25/17 12:05 90 10/25/17 12:00 86 18 117/58 (77) 10/25/17 11:55 115 10/25/17 11:50 81 10/25/17 11:46 74 118/68 (85) 10/25/17 11:45 94 10/25/17 11:40 79 10/25/17 11:35 89 10/25/17 11:31 101 117/56 (76) 10/25/17 11:30 86 10/25/17 11:26 98.3 10/25/17 11:25 87 10/25/17 11:20 102 10/25/17 11:15 83 10/25/17 11:11 98 136/54 (81) 10/25/17 11:10 103 10/25/17 11:06 81 120/75 (90) 10/25/17 11:05 84 10/25/17 11:01 93 113/62 (79) 10/25/17 11:00 78 10/25/17 10:59 17 10/25/17 10:55 78 10/25/17 10:55 107 116/53 (74) 10/25/17 10:50 87 118/44 (68) 10/25/17 10:50 87 10/25/17 10:46 128 119/36 (63) 10/25/17 10:41 80 109/73 (85) 10/25/17 10:40 81 10/25/17 10:37 104/72 (83) 10/25/17 10:36 81 66/48 (54) 10/25/17 10:35 77 10/25/17 10:31 69 132/57 (82) 10/25/17 10:30 75 10/25/17 10:30 18 10/25/17 10:26 76 121/58 (79) 10/25/17 10:25 98 10/25/17 10:21 76 130/64 (86) 10/25/17 10:20 85 10/25/17 10:16 66 133/62 (85) 10/25/17 10:15 72 10/25/17 10:11 76 132/72 (92) 10/25/17 10:10 94 10/25/17 10:06 91 112/84 (93) 10/25/17 10:05 84 10/25/17 09:56 70 120/47 (71) 10/25/17 09:55 86 10/25/17 09:50 89 10/25/17 09:50 73 119/67 (84) 10/25/17 09:45 72 132/77 (95) 10/25/17 09:45 91 10/25/17 09:41 88 119/59 (79) 10/25/17 09:40 83 10/25/17 09:36 73 113/57 (75) 10/25/17 09:35 77 10/25/17 09:33 19 10/25/17 09:31 72 120/57 (78) 10/25/17 09:30 86 17 10/25/17 09:29 78 120/72 (88) 10/25/17 09:00 92 123/65 (84) 10/25/17 08:15 18 Result Diagram: 10/26/17 0451 Objective Remarks GENERAL: Well-nourished, well-developed patient. CARDIOVASCULAR: Regular rate and rhythm without murmurs, gallops, or rubs. RESPIRATORY: Breath sounds equal bilaterally. No accessory muscle use. ABDOMEN/GI: Abdomen soft, non-tender, bowel sounds present. Incision: Clean, dry and intact. Fundus: Firm, non-tender at umbilicus. GENITOURINARY: Light to moderate bleeding. EXTREMITIES: No cyanosis or edema, non-tender, without signs of DVT. Medications and IVs Current Medications Medications (Trade) Dose Ordered Sig/Zan Route Start Time Stop Time Status Last Admin Lactated Ringer's 1,000 ml @ 125 mls/hr Q8H IV 10/24/17 23:47 10/25/17 10:53 Lactated Ringer's 1,000 ml @ 3,000 mls/hr Q20M PRN IV 10/24/17 23:47 10/25/17 10:53 Sodium Chloride 500 ml @ 1,000 mls/hr ONCE PRN IV 10/25/17 00:00 Sodium Chloride 1,000 ml @ 100 mls/hr Q10H PRN IV 10/25/17 00:07 (Xylocaine 1% Inj (50 ml)) 0.1 ml UNSCH X1 PRN I-DERMAL 10/25/17 00:00 10/27/17 23:59 (Bicitra Liq) 30 ml [employer] PO 10/25/17 00:00 10/28/17 23:59 10/25/17 17:21 (fentaNYL INJ) 50 mcg Q1H PRN IV PUSH 10/25/17 00:00 10/25/17 03:46 (fentaNYL INJ) 100 mcg Q1H PRN IV PUSH 10/25/17 00:00 10/25/17 07:39 (Xylocaine 1% Inj (50 ml)) 10 ml UNSCH X1 PRN INFIL 10/25/17 00:00 10/26/17 23:59 (Muri-Lube Oil) 10 ml UNSCH PRN TOPICAL 10/25/17 00:00 Oxytocin 500 ml @ 0 mls/hr TITRATE PRN IV 10/25/17 00:00 10/25/17 01:03 Miscellaneous Information No systemic narcotics to be given except... UNSCH PRN .XX 10/25/17 11:30 10/26/17 11:29 Miscellaneous Information DO NOT ADMINISTER ANY ANTICOAGUL... UNSCH PRN .XX 10/25/17 11:30 10/26/17 11:29 Fentanyl/ Bupivacaine HCl 100 ml @ 0 mls/hr TITRATE EPIDURAL 10/25/17 11:30 (ePHEDrine/NS 25 MG/5 ML SYR) 10 mg UNSCH PRN IV PUSH 10/25/17 11:30 10/26/17 11:29 Lactated Ringer's 1,000 ml @ 100 mls/hr Q10H IV 10/26/17 02:55 10/26/17 22:54 10/26/17 04:33 Oxytocin 500 ml @ 100 mls/hr UNSCH X1 PRN IV 10/26/17 08:00 10/27/17 07:59 (NS Flush) 2 ml BID IV FLUSH 10/26/17 09:00 (NS Flush) 2 ml UNSCH PRN IV FLUSH 10/25/17 22:00 (Mylicon Chew) 80 mg QID PRN PO 10/25/17 22:00 (Tylenol) 650 mg Q6H PRN PO 10/25/17 22:00 (Motrin) 600 mg Q6H PRN PO 10/26/17 22:00 (Toradol Inj) 60 mg UNSCH X1 PRN IM 2/22/18 22:00 10/26/17 21:59 10/26/17 04:32 (Percocet 5-325 Mg) 1 tab Q4H PRN PO 10/25/17 22:00 (Percocet 5-325 Mg) 2 tab Q4H PRN PO 10/25/17 22:00 (Fabby-Colace) 2 tab Q12H PRN PO 10/25/17 22:00 (M-M-R Ii Inj) 0.5 ml ONCE ONCE SQ 10/26/17 16:00 10/26/17 16:01 (Boostrix Inj) 0.5 ml ONCE ONCE IM 10/26/17 16:00 10/26/17 16:01 (Zofran Inj) 4 mg Q6H PRN IV PUSH 10/25/17 22:00 Cefazolin Sodium/ Dextrose 50 ml @ 100 mls/hr Q8H IV 10/26/17 05:00 10/26/17 13:29 10/26/17 04:32 Miscellaneous Information NO SYSTEMIC NARCOTICS TO BE GIVEN FO... UNSCH PRN .XX 10/25/17 23:45 10/26/17 23:44 (Narcan Inj) 0.4 mg UNSCH PRN IV PUSH 10/25/17 23:45 10/26/17 23:44 (Benadryl Inj) 25 mg Q6H PRN IV PUSH 10/25/17 23:45 10/26/17 23:44 10/26/17 01:01 (Benadryl) 50 mg Q6H PRN PO 10/25/17 23:45 10/26/17 23:44 Miscellaneous Information ALL NURSING DEPARTMENTS UNSCH PRN .XX 10/25/17 23:45 10/26/17 23:44 Assessment/Plan Assessment and Plan 22y/o female who is POD#1 s/p CXN. -Continue routine care. -Percocet and Motrin PRN pain. -Encouraged OOB. Advised pelvic rest for 6 wks. Will need a f/u appt. in 1 wk for incision check. -Re: ctrl, she would like to have an IUD placed, patient will follow up with primary care. -D/c in 1-2 more days. RUBY Izaguirre,Amarjit Purcell MD R1 Oct 26, 2017 08:14
[2017-10-26] MEDS ORDERED: SODIUM CHLORIDE 0.9% FLUSH 10 ML FLUSH IV FLUSH SCH (09:00)
[2017-10-26] MEDS: IBUPROFEN 600 MG TAB PO PRN ×2 (10:58→17:19)
[2017-10-26 12:00] VITALS: BP 133/69; PULSE 104; RESP 18; TEMP 98.2; O2SAT 99
[2017-10-26 16:00] VITALS: BP 117/66; PULSE 110; RESP 16; TEMP 99; O2SAT 100
[2017-10-26] MEDS ORDERED: MEASLES, MUMPS, RUBELLA VACCINE 0.5 ML VIAL SQ ONE (16:00)
[2017-10-26] MEDS ORDERED: DIPHTH/TETANUS/ACEL PERTUSSIS (BOOSTER) 0.5 ML VIAL/PFS IM ONE (16:00)
[2017-10-26 19:50] VITALS: BP 123/73; PULSE 89; RESP 18; TEMP 98.2
[2017-10-26] MEDS ORDERED: IBUPROFEN 600 MG TAB PO PRN (22:00)
[2017-10-26 23:41] LABS: HEMATOCRIT 25.7 % (35.0-46.0); HEMOGLOBIN 8.6 GM/DL (11.6-15.3); MEAN CELL VOLUME 90.7 FL (80.0-100.0); MEAN CORPUSCULAR HEMOGLOBIN 30.3 PG (27.0-34.0); MEAN CORPUSCULAR HGB CONC 33.4 % (32.0-36.0); MEAN PLATELET VOLUME 8.5 FL (7.0-11.0); PLATELET COUNT 181 TH/MM3 (150-450); RED BLOOD COUNT 2.83 MIL/MM3 (4.00-5.30); WHITE BLOOD COUNT 13.2 TH/MM3 (4.0-11.0)
[2017-10-27] MEDS ORDERED: SIMETHICONE 80 MG CHEWABLE TAB PO PRN
[2017-10-27] MEDS ORDERED: oxyCODONE/ACETAMINOPHEN 5 MG/325 MG TAB PO PRN
[2017-10-27] MEDS ORDERED: ACETAMINOPHEN 325 MG TAB PO PRN
[2017-10-27] MEDS ORDERED: SODIUM CHLORIDE 0.9% FLUSH 10 ML FLUSH IV FLUSH PRN
[2017-10-27] MEDS ORDERED: IBUP-232 PO (00:08)
[2017-10-27] MEDS ORDERED: PERI PO (00:08)
--- NOTE | 2017-10-27 00:08 | HHI.DCPOC ---
Discharge Care Plan Diagnosis: (1) (spontaneous vaginal delivery) Report Symptoms to Your Doctor -Temperature above 100.5 degrees -Redness, of incision or excessive or foul smelling drainage -Unusual pain or calf pain -Increased vaginal bleeding -Painful or difficulty urinating -Feelings of extreme sadness or anxiety after 2 weeks Goals to Promote Your Health * To prevent worsening of your condition and complications * To maintain your health at the optimal level Directions to Meet Your Goals Take your medications as prescribed Follow your dietary instruction Follow activity as directed Ensure plenty of rest for recovery Drink fluids for hydration Keep your appointments as scheduled Take your immunizations and boosters as scheduled If your symptoms worsen call your PCP, if no PCP go to Urgent Care Center or Emergency Room Smoking is Dangerous to Your Health. Avoid second hand smoke Call the 24-hour crisis hotline for domestic abuse at Rajinder Beltre MD R2 Oct 27, 2017 00:08
[2017-10-27 00:12] LABS: ALBUMIN 2.5 GM/DL (3.4-5.0); ALT (GPT) 13 U/L (9-42); AST (GOT) 42 U/L (16-38); BICARBONATE 29.1 MEQ/L (21.0-32.0); BLOOD UREA NITROGEN 6 MG/DL (7-18); CALCIUM 8.4 MG/DL (8.5-10.1); CHLORIDE 103 MEQ/L (98-107); CREATININE 0.63 MG/DL (0.50-1.00); GLOMERULAR FILTRATION RATE 146 ML/MIN (>89); GLUCOSE,RANDOM 85 MG/DL (74-106); SODIUM (NA) 137 MEQ/L (136-145)
[2017-10-27 00:15] LABS: ALKALINE PHOSPHATASE 136 U/L (45-117); TOTAL BILIRUBIN ADULT 0.5 MG/DL (0.2-1.0); TOTAL PROTEIN 5.7 GM/DL (6.4-8.2)
[2017-10-27] MEDS ORDERED: OXYC1TAB63 PO (00:18)
[2017-10-27] MEDS: oxyCODONE/ACETAMINOPHEN 5 MG/325 MG TAB PO PRN ×4 (03:35→18:48)
[2017-10-27] MEDS: IBUPROFEN 600 MG TAB PO PRN ×3 (03:35→18:47)
--- NOTE | 2017-10-27 07:19 | HHI.OB ---
Subjective Post Operative Day: 2 Remarks Pt seen and examined this morning. Post operative day # 2 AFVSS overnight. Incision nondraining. Decreased lochia. Denies dysuria. No breast tenderness. She is feeding the baby via breast and bottle. Appetite good. No nausea or vomiting. Patient has not yet had a bowel movement or endorses bowel gas. Ambulating well. Denies calf pain or shortness of breath. Otherwise, she is doing well this morning and has no other concerns. Objective Vitals/I&O Vital Signs Date Time Temp Pulse Resp B/P (MAP) Pulse Ox O2 Delivery O2 Flow Rate FiO2 10/26/17 19:50 89 123/73 (90) 10/26/17 19:50 98.2 18 10/26/17 16:00 99.0 10/26/17 16:00 110 16 117/66 (83) 100 10/26/17 12:00 133/69 (90) 10/26/17 12:00 98.2 104 18 99 10/26/17 08:00 99.4 111 18 143/65 (91) 96 Result Diagram: 10/26/17232510/26/17 2326 Objective Remarks GENERAL: Well-nourished, well-developed patient. CARDIOVASCULAR: Regular rate and rhythm without murmurs, gallops, or rubs. RESPIRATORY: Breath sounds equal bilaterally. No accessory muscle use. ABDOMEN/GI: Abdomen soft, non-tender, bowel sounds present. Incision: Clean, dry and intact. Fundus: Firm, non-tender at umbilicus. GENITOURINARY: Light to moderate bleeding. EXTREMITIES: No cyanosis or edema, non-tender, without signs of DVT. Medications and IVs Current Medications Medications (Trade) Dose Ordered Sig/Zan Route Start Time Stop Time Status Last Admin (NS Flush) 2 ml UNSCH PRN IV FLUSH 10/27/17 00:00 (Mylicon Chew) 80 mg QID PRN PO 10/27/17 00:00 10/27/17 03:53 (Tylenol) 650 mg Q6H PRN PO 10/27/17 00:00 (Motrin) 600 mg Q6H PRN PO 10/27/17 00:00 10/27/17 03:35 (Percocet 5-325 Mg) 1 tab Q4H PRN PO 10/27/17 00:00 (Percocet 5-325 Mg) 2 tab Q4H PRN PO 10/27/17 00:00 10/27/17 03:35 (Fabby-Colace) 2 tab Q12H PRN PO 10/27/17 00:00 Assessment/Plan Problem List: (1) Single delivery by ICD Codes: O82 - Encounter for delivery without indication Status: Acute Assessment and Plan 22y/o female who is POD#2 s/p CXN. -Continue routine care. -Percocet and Motrin PRN pain. -Encouraged OOB. Advised pelvic rest for 6 wks. Will need a f/u appt. in 1 wk for incision check. -Re: ctrl, she would like to have an IUD placed, patient will follow up with primary care. -D/c likely tomorrow as mom is not passing gas and baby will require circumcision today. RUBY Card Discharge Planning Likely tomorrow pending clinical course Rajinder Beltre MD R2 Oct 27, 2017 07:19
[2017-10-27] MEDS: DOCUSATE SODIUM 50 MG/SENNA 8.6 MG TAB PO PRN (07:36)
[2017-10-27 08:00] VITALS: BP 139/73; PULSE 95; RESP 18; TEMP 97.8; O2SAT 98
--- NOTE | 2017-10-27 08:13 | HHI.DCPOC ---
Discharge Care Plan Diagnosis: (1) Single delivery by Report Symptoms to Your Doctor -Temperature above 100.5 degrees -Redness, of incision or excessive or foul smelling drainage -Unusual pain or calf pain -Increased vaginal bleeding -Painful or difficulty urinating -Feelings of extreme sadness or anxiety after 2 weeks Goals to Promote Your Health * To prevent worsening of your condition and complications * To maintain your health at the optimal level Directions to Meet Your Goals Take your medications as prescribed Follow your dietary instruction Follow activity as directed Ensure plenty of rest for recovery Drink fluids for hydration Keep your appointments as scheduled Take your immunizations and boosters as scheduled If your symptoms worsen call your PCP, if no PCP go to Urgent Care Center or Emergency Room Smoking is Dangerous to Your Health. Avoid second hand smoke Call the 24-hour crisis hotline for domestic abuse at Rajinder Beltre MD R2 Oct 27, 2017 08:13
[2017-10-27 20:00] VITALS: BP 140/71; PULSE 98; RESP 18; TEMP 98; O2SAT 99
[2017-10-28] MEDS: IBUPROFEN 600 MG TAB PO PRN ×2 (00:26→06:35)
[2017-10-28] MEDS: oxyCODONE/ACETAMINOPHEN 5 MG/325 MG TAB PO PRN ×2 (00:26→06:35)
[2017-10-28 07:30] VITALS: RESP 18
[2017-10-28] MEDS: DOCUSATE SODIUM 50 MG/SENNA 8.6 MG TAB PO PRN (08:39)
--- NOTE | 2017-10-28 08:42 | HHI.OB ---
Subjective Post Operative Day: 3 Remarks Patient seen and examined this morning. Post operative day #3. AFVSS overnight. Incision not draining or bleeding. Decreased lochia. Mother is feeding the baby via breast and formula. Appetite good without nausea or vomiting. Denies dysuria. No breast tenderness. Patient does endorse flatus. Ambulating well without issues. Denies fevers, chills, CP, SOB, calf pain. Patient is otherwise doing well without complaints or concerns. Objective Vitals/I&O Vital Signs Date Time Temp Pulse Resp B/P (MAP) Pulse Ox O2 Delivery O2 Flow Rate FiO2 10/27/17 20:00 98.0 98 18 140/71 (94) 99 10/27/17 20:00 98.0 98 18 140/71 (94) 99 Result Diagram: 10/26/17232510/26/172325 Objective Remarks GENERAL: Well-nourished, well-developed patient. CARDIOVASCULAR: Regular rate and rhythm without murmurs, gallops, or rubs. RESPIRATORY: Breath sounds equal bilaterally. No accessory muscle use. ABDOMEN/GI: Abdomen soft, non-tender, bowel sounds present. Incision: Clean, dry and intact. Steri-strips intact. Fundus: Firm, non-tender at umbilicus. GENITOURINARY: Light to moderate bleeding. EXTREMITIES: No cyanosis or edema, non-tender, without signs of DVT. Medications and IVs Current Medications Medications (Trade) Dose Ordered Sig/Zan Route Start Time Stop Time Status Last Admin (NS Flush) 2 ml UNSCH PRN IV FLUSH 10/27/17 00:00 (Mylicon Chew) 80 mg QID PRN PO 10/27/17 00:00 10/27/17 03:53 (Tylenol) 650 mg Q6H PRN PO 10/27/17 00:00 (Motrin) 600 mg Q6H PRN PO 10/27/17 00:00 10/28/17 06:35 (Percocet 5-325 Mg) 1 tab Q4H PRN PO 10/27/17 00:00 (Percocet 5-325 Mg) 2 tab Q4H PRN PO 10/27/17 00:00 10/28/17 06:35 (Fabby-Colace) 2 tab Q12H PRN PO 10/27/17 00:00 10/27/17 07:36 Assessment/Plan Problem List: (1) Single delivery by ICD Codes: O82 - Encounter for delivery without indication Status: Acute Assessment and Plan 22 y/o female who is POD#3 s/p CXN. -Continue routine care. -Percocet and Motrin PRN pain. -Encouraged OOB -Advised pelvic rest for 6 weeks -Discussed need for f/u appt. in 1 wk for incision check. -Re: ctrl, she would like to have an IUD placed, patient will follow up with primary care. -Stable for discharge today RUBY Barron Discharge Planning Stable for discharge today Dustin Blanchard MD Oct 28, 2017 08:42
== END 2017-10-28 13:07 | disposition home or self-care (01) | DRG 766 ==
LOC: HOBED 22:57 → H2EB 23:52 → H1EA 10-25 23:42
PROVIDERS: ADMIT Obstetrics & Gynecology Obstetrics; ATTEND Obstetrics & Gynecology Obstetrics
PROC: 10D00Z1 Extraction of Products of Conception, Low, Open Approach (ICD-10-PCS; principal; 2017-10-25)
PROC: 10907ZC Drainage of Amniotic Fluid, Therapeutic from Products of Conception, Via Natural or Artificial Opening (ICD-10-PCS; 2017-10-25)
PROC: 3E0R3BZ Introduction of Anesthetic Agent into Spinal Canal, Percutaneous Approach (ICD-10-PCS; 2017-10-25)
PROC: 00HU33Z Insertion of Infusion Device into Spinal Canal, Percutaneous Approach (ICD-10-PCS; 2017-10-25)
DX: O99.824 Streptococcus B carrier state complicating childbirth (principal); Z23 Encounter for immunization; O62.2 Other uterine inertia; Z37.0 Single live birth; Z3A.40 40 weeks gestation of pregnancy
CPT/HCPCS: 59025; 80053; 80307; 85025; 85027; 86900; 86901; 87150; 90686; 90715; G0481; J0131; J0690; J1200; J1885; J2274; J2370; J2405; J2540; J2590; J2765; J3010; J7120; Q2038